=== PATIENT | male | born 1990 | race Caucasian/White ===

== ENCOUNTER 2020-12-12 11:54 | Emergency (ER) | payer OTHER, SELFPAY ==
[2020-12-12 11:56] VITALS: BP 136/103; PULSE 93; RESP 15; TEMP 36.5; O2SAT 96; BMI 34.4
--- NOTE | 2020-12-12 12:46 | EX.ED.DYSGE1 ---
HPI History of Present Illness Chief Complaint: Dizziness Informant: patient Onset/Context/Timing Onset: Yesterday Context: Sudden Onset Current Severity: Moderate Maximum Severity: Moderate Narrative Narrative: Patient presents secondary to dizziness and vomiting. Patient states he was at work yesterday afternoon at 1:30 in the afternoon when he developed sudden onset of spinning sensation. He left work early and has vomited multiple times secondary to the dizziness. He states he has had vertigo in the past but never this severe and never with vomiting. He denies headache. No head trauma. He denies weakness or paresthesias elsewhere. [facility] Medical History (Updated 12/12/20 @ 14:[address] Zara Pehlan MD) Knee pain Migraines Stomach ulcer Home Medications meclizine 25 mg tablet 25 mg PO BID-TID PRN #10 tab 07/11/18 [Rx Last Taken Unknown] omeprazole magnesium 10 mg oral suspension,delayed release 10 mg PO DAILY 07/11/18 [History Last Taken Unknown] promethazine 25 mg tablet 25 mg PO Q6H PRN #10 tab 07/11/18 [Rx Last Taken Unknown] clindamycin HCl 300 mg capsule 300 mg PO TID #21 cap 02/28/20 [Rx Last Taken Unknown] meclizine [Antivert] 50 mg PO BID PRN #14 tab 12/12/20 [Rx Last Taken Unknown] ondansetron 4 mg PO Q8H PRN #10 tab 12/12/20 [Rx Last Taken Unknown] Allergy/AdvReac Type Severity Reaction Status Date / Time cefaclor [From [facility]] Allergy Unknown Verified 12/12/20 11:55 Surgical History History of appendectomy Social History Smoking Status: Never smoker alcohol intake: never ROS ROS ED Constitutional Constitutional ED: Denies chills or fever(s) Eyes Eyes: Denies change in vision ENT ENT ED: Denies sore throat Cardiovascular Cardiovascular: Denies chest pain Respiratory/Chest Respiratory/Chest: Denies cough or dyspnea Gastrointestinal Gastrointestinal: Reports nausea and vomiting; Denies abdominal pain or diarrhea Genitourinary Genitourinary ED: Denies dysuria Musculoskeletal Musculoskeletal: Denies back pain Integumentary Denies rash Neurologic Neurologic: Denies headache(s) or weakness Psychiatric Psychiatric: Denies anxiety or depression Endocrine Endocrinology: Denies polydipsia or polyuria Allergic/Immunologic Allergic/Immunologic ED: Denies urticaria EXAM Physical Exam Const Vital Signs: 12/12/20 11:56 12/12/20 13:09 12/12/20 13:11 Temperature 97.7 F L Temperature Source Temporal Pulse Rate 93 Respiratory Rate 15 14 Respiratory Effort Normal Respiratory Pattern Normal Blood Pressure 136/103 H Blood Pressure Mean 114 Pulse Ox 96 Oxygen Delivery Method Room Air Positive well nourished and well developed General Appearance ED: well developed HEENT Reports normocephalic and head/scalp atraumatic Eyes PERRL and EOMs intact bilaterally Eyes Narrative: Recurrent symptoms of vertigo when he gazes to the left. Neck supple Chest Wall inspection of chest normal and palpation of chest normal Resp normal respiratory effort and clear to auscultation bilaterally Cardio regular rate and regular rhythm GI normal to inspection, nondistended, normoactive bowel sounds Palpation: soft Back/Spine no CVA tenderness Extremity normal to inspection Neuro oriented x3 and no sensory deficits noted Sensorium / Orientation: alert Motor Exam: strength 5/5 throughout Psych mental status grossly normal Skin no rashes or lesions noted MDM MDM MDM Narrative Medical decision making narrative: Patient was given IV fluids, Zofran, Antivert. Labs and head CT are obtained. Patient declined EKG. He was placed on diagnostic cardiac sonographer with no obvious arrhythmias. Lab Data Attestation: I reviewed the patient's lab results. Labs: Laboratory Results - last 24 hr 12/12/20 12/12/20 12:20 12:20 WBC 5.8 RBC 4.92 Hgb 14.9 Hct 43.6 MCV 88.6 MCH 30.3 MCHC 34.2 RDW Std Deviation 39.5 RDW Coeff of Sharan 12.1 Plt Count 244 MPV 11.2 Immature Gran % (Auto) 0.200 Neut % (Auto) 61.7 Lymph % (Auto) 27.2 [place] % (Auto) 8.8 Eos % (Auto) 1.6 Baso % (Auto) 0.5 Absolute Neuts (auto) 3.6 Absolute Lymphs (auto) 1.58 Nucleated RBC % 0 Sodium 140 Potassium 3.7 Chloride 106 Carbon Dioxide 30.0 Anion Gap 4 L BUN 15 Creatinine 1.00 Estim Creat Clear Calc 107.03 Est GFR (MDRD) Af Amer 112 Est GFR (MDRD) Non-Af 93 BUN/Creatinine Ratio 15.0 Glucose 110 H Calcium 8.5 Radiography Diagnostic Testing: Radiology Impression Brain CT 12/12/20 13:07 IMPRESSION: Normal unenhanced CT scan of the brain. Opacification of the left maxillary sinus. Electronically Signed: Quetnin Hampton MD at 13:25 EDT , Service support , Treatment and Re-Evaluation Comments:: On repeat evaluation patient still does complain of some vertigo symptoms. He is, however, requesting to go home stating he feels good enough to do that. He will be given prescriptions for Zofran and Antivert at home. He will be given instructions on Rosaline maneuver. Discharge Plan Triage Chief Complaint: Dizziness ED Provider: Zara Phelan Dx/Rx/DC Orders Clinical Impression: BPPV (benign paroxysmal positional vertigo) Instructions: ED BPV Vertigo Prescriptions: New Antivert 50 mg tablet 50 mg PO BID PRN (Reason: dizziness) Qty: 14 RF: 0 ondansetron 4 mg tablet,disintegrating 4 mg PO Q8H PRN (Reason: nausea and vomiting) Qty: 10 RF: 0 No Action Prilosec 10 mg susp,delayed release for recon 10 mg PO DAILY RF: 0 meclizine 25 mg tablet 25 mg PO BID-TID PRN (Reason: dizziness) Qty: 10 RF: 0 promethazine 25 mg tablet 25 mg PO Q6H PRN (Reason: nausea and vomiting) Qty: 10 RF: 0 clindamycin HCl 300 mg capsule 300 mg PO TID Qty: 21 RF: 0 Primary Care Provider: Care Physician,No Primary Referrals: Care Physician,No Primary [Primary Care Provider] - Activity Restrictions/Additional Instructions: Please follow-up with your new PCP on December 23 as scheduled. Disposition Disposition: Home, Self Care
[2020-12-12 12:57] LABS: Absolute Lymphocyte Count 1.58 X10^3/uL (0.83-4.51); Absolute Neutrophil Count 3.6 X10^3/uL (2.0-7.7); Basophil# 0.03 X10^3/uL; Basophil% 0.5 % (0-1); Eosinophil# 0.09 X10^3/uL; Eosinophils% 1.6 % (0-5); Hematocrit 43.6 % (40-54); Hemoglobin 14.9 g/dL (13.0-16.5); Lymphocyte # 1.58 X10^3/ul (0.83-4.51); Lymphocyte % 27.2 % (19-41); Mean Corp Hgb Conc 34.2 g/dL (32-36); Mean Corpuscular Hgb 30.3 pg (27.0-32.0); Mean Corpuscular Volume 88.6 fL (80-94); Mean Platelet Vol. 11.2 fl (6.2-12.0); Monocyte# 0.51 X10^3/uL; Monocyte% 8.8 % (0-10); NRBC Flagged by Analyzer 0 % (0-5); Neutrophil # 3.58 X10^3/uL (2.7-7.7); Neutrophil % 61.7 % (47-70); Platelet Count 244 K/mm3 (150-450); RBC Distribution Width CV 12.1 % (11.6-14.6); RBC Distribution Width SD 39.5 fl (35.1-43.9); Red Blood Count 4.92 M/mm3 (4.6-6.2); White Blood Count 5.8 K/mm3 (4.4-11.0)
[2020-12-12 13:05] LABS: Anion Gap 4 (5-15); BUN 15 mg/dL (7-18); Calcium,Total 8.5 mg/dL (8.5-10.1); Chloride 106 mmol/L (98-107); EST Glomerular Filtration Rate 93 mL/min (>60); Est Glom Filt Rate - Afr Amer 112 mL/min (>60); Estimated Creatinine Clearance 107.03 ml/min; Glucose 110 mg/dL (74-106); Potassium 3.7 mmol/L (3.5-5.1); Sodium Level 140 mmol/L (136-145)
--- NOTE | 2020-12-12 13:07 | CT_ITS ---
STUDY: CT BRAIN WITHOUT CONTRAST REASON FOR EXAM: Male, 30 years old. Vertigo RADIATION DOSAGE (If Supplied By Facility): CTDIvol = ( 38.43 ) mGy, DLP = ( 741.51 ) mGycm TECHNIQUE: Transaxial CT imaging of the brain was performed without administration of intravenous contrast material. Individualized dose optimization techniques were used for this CT. COMPARISON: No relevant priors. FINDINGS: Normal soft tissue structures. Normal calvarium. Normal size ventricles and extra-axial spaces for the patient''s age. Normal white matter tracts of the cerebral hemispheres. Normal basal ganglia and thalami. Normal brainstem. Normal cerebellum. There is no intracranial hemorrhage. There are no findings of an acute ischemic infarction. There is opacification of the left maxillary sinus. CT/Brain/Head without Contrast IMPRESSION: Normal unenhanced CT scan of the brain. Opacification of the left maxillary sinus. Electronically Signed: Quentin Hampton MD at 13:25 EDT , Service support ,
[2020-12-12 13:11] VITALS: RESP 14
[2020-12-12] MEDS: Meclizine HCl 25 MG Tablet PO (13:26)
[2020-12-12] MEDS: 0.9% Normal Saline 1,000 ML 1000 ML IV (13:27)
[2020-12-12] MEDS: Ondansetron 4 MG/2 ML Vial IV (13:27)
--- NOTE | 2020-12-12 13:29 | CM.ED ---
KAREN Note Referral Source: Case Find Referral Reason: No primary Care physican KAREN reviewed patient's chart and noted patient has no Primary Care Physican (PCP). KAREN met with patient. He reports he has an appt with a PCP next month. KAREN provided him with a list of [facility] doctors if he needed any more additional information. No other concerns or issues voiced. Plan: Provide with list of PCP Maria Teresa NAYAK
== END 2020-12-12 15:07 | disposition home or self-care (01) ==
PROVIDERS: Emergency Provider Emergency Medicine
DX: H81.10 Benign paroxysmal vertigo, unspecified ear (principal)
CPT/HCPCS: 70450; 80048; 85025; 96374; 99283; J7030; A4216; J2405

== ENCOUNTER → 2021-04-22 08:02 | Outpatient (CLI) | payer OTHER, SELFPAY ==
--- NOTE | 2021-04-22 08:03 | MRI_ITS ---
STUDY: MRI LEFT ANKLE WITHOUT CONTRAST REASON FOR EXAM: Medial posterior left ankle pain after left ankle injury 5 weeks ago. TECHNIQUE: Standardized fat and water weighted pulse sequences were obtained in all 3 orthogonal planes. COMPARISON: Radiographs 04/04/2021. FINDINGS: Normal subcutis adipose space. There is a ganglion cyst posterior to the posterior talofibular ligament (T2 axial images 16, 17) measuring 0.5 x 1.4 cm (AP x transverse). Normal posterior tibialis tendon. Normal flexor digitorum longus tendon. Normal flexor hallucis longus tendon. Normal peroneus longus and brevis tendons. Normal tibialis anterior tendon. Normal extensor hallucis longus tendon. Normal extensor digitorum longus tendons. Normal Achilles tendon and teno-osseous insertion. Normal plantar fascia. Normal plantar calcaneal tubercles. Normal intrinsic muscles of the rearfoot. Normal distal tibiofibular syndesmotic ligamentous complex. There is a mild sprain of the anterior talofibular ligament (T2 axial image 17). Normal calcaneofibular and posterior talofibular ligaments. Normal subtalar ligaments and sinus tarsi. There is a mild sprain of the deltoid ligament (T2 coronal image 14). Normal plantar calcaneonavicular (spring) ligament. Normal tibiotalar articulation. Normal talar dome. There is a bone island in the anterior aspect of the talar dome (T1 sagittal image 12). Normal subtalar articulations. There is a small os trigonum. There is mild bone edema in the superior aspect of the posterior tuberosity of the calcaneus (inversion recovery sagittal images 12-14), a stress phenomenon. Normal talonavicular articulation. Normal calcaneocuboid articulation. Normal navicular-cuneiform articulations. MRI/Lower Ext Joint Only (Routine) IMPRESSION: Mild sprain of the anterior talofibular ligament. Mild sprain of the deltoid ligament. Mild bone edema in the superior aspect of the posterior tuberosity of the calcaneus, a stress phenomenon. Ganglion cyst posterior to the posterior talofibular ligament. Electronically Signed: Venkat Reese MD at 9:41 EST Tel , Service support ,
== END ==
PROVIDERS: Referring Provider Physician Assistant Surgical; Visit Provider Physician Assistant Surgical
DX: S96.912A Strain of unspecified muscle and tendon at ankle and foot level, left foot, initial encounter (principal)
CPT/HCPCS: 73721

== ENCOUNTER 2021-06-26 15:30 | Outpatient (RCR) | payer OTHER, SELFPAY ==
--- NOTE | 2021-05-28 17:53 | HP.PTEVAL ---
Patient's Visit Information LANNY MARTINEZ is a 30 year old M referred to Physical Therapy by ROSALIO Tripp with a diagnosis of LEFT ANKLE SPRAIN. Date of Evaluation: 05/28/21 Physical Therapist: Lg Pak, PT, Cert MDT, OCS - Visit Plan Frequency: 2-3x /Week Duration: 4-6 Weeks Plan: PT INTERVETIONS ROM ANKLE ,FLEXABLITY G-S,STRENGTHENING ANKLE STABLIZERS ,PROPRIOCEPTION AND FUNCTIONA STRENGTHENING MODALTIES NEEDED - Subjective This 30 y/o male presents to physical therapy with left ankle sprain. Patient injured left fell of ladder from 6 ft ladder 2nd steps from top on 03/30/21 . [facility] X-ray did showed possible a hairline fracture placed CAM boot with NWB with crutches. Also had a lot of edema. Return to 3weeks x-rays - . Place air cast with WBT no crutches. Then had MRI showed mild sprain ATFL, deltoid ligament and bone bruise Then [facility] reviewed MRI recommended PT. RTW next week on light duty . Patient also is on light Duty at work. Patient pain located anterior posterior ankle with push off gait. Patient conts to get edema with prolonged standing at work. Denies paresthesia/tingling. Sleep okay at night. Aggravating factors inactivity ,on feet with walking affecting job demands. SOCAIL: . VOACTION: [employer] - Pain Left Ankle Pain Intensity (Out of 10): 7 Pain Intensity Range: 10 - Objective POSTURE: mild pes planus. EDEMA: trimalleor joint line 60.2 cm. GAIT: reciprocal pattern. PALAPATION: anterior talofibular ligament, deltoid ,calcaneal ligament. AROM: dorsiflexion 10 from 0 ,plantarflexion 65 degrees ,eversion 10 degrees ,inversion 35 degrees. MMT: anterior tibals 4-/5,posterior tibials 4-/5,peroneous 4-/5 G-S 4-/5. PROPRIOCEPTION: fair with SLS 30sec. SPECIAL TEST: ANTERIOR DRAWER 1+,INVERSION + ,TALAR TILT + - Balance/Special Test Scores Lower Extremity Functional Score: 36 - Goals Goal 1:: I with HEP for ankle Goal Time Frame: 4-6 Weeks Goal 2:: Patient to improve ROM ankle symmetrically left compared to right to improve function and gait Goal Time Frame: 4-6 Weeks Goal 3:: Patient to increase strength left ankle stabilizers by 5/5 to improve gait Goal Time Frame: 4-6 Weeks Goal 4:: Patient to improve proprioception to WNL to improve gait and job demands walking outside. Goal Time Frame: 6-8 Weeks Goal 5:: Patient improve LFES score by 10 points or > to improve function and job demands. Goal Time Frame: 4-6 Weeks - Rehabilitation Potential Physical Therapy Diagnosis: This patient twisted left ankle at work caused pain ,swelling ,difficulty to walk, initially had to be NWB with crutches causes impairments to RTW fully duty thus benefit from skilled PT Rehabilitation Potential: Good - Anticipated Interventions Patient/Client Instruction: Educate patient on: Condition, Plan of Care For the Purpose of:: To decrease pain, To increase ROM, To improve muscle performance and motor function, To improve ability to perform ADL's, To improve performance and independence with ADL's, To improve ability of physical actions for home/community/work/leisure, To improve health of tissue, To decrease soft tissue restriction, To increase flexibility/ROM, To improve balance, To improve safety, To prevent re-injury Therapeutic Exercise to Include: Strength training, Balance training, Flexibilty training, Active ROM Comment: ANKLE For the Purpose of:: To decrease pain, To increase ROM, To increase oxygenation perfusion, To improve ability to perform ADL's, To increase tolerance to activity/condition/position, To improve ability of physical actions for home/community/work/leisure, To improve health of tissue, To decrease soft tissue restriction, To increase flexibility/ROM, To improve balance, To prevent re-injury TENS: Yes IF ES: Yes Cryotherapy (ice pack, ice massage): Yes Thermo therapy (hot pack): Yes Ultrasound (thermal/non thermal): Yes For the Purpose of:: To decrease pain, To improve health of tissue, To decrease soft tissue restriction Thank you for the opportunity to evaluate your patient. For Medicare and Medicare HMO plans, please review the plan of care and approve it. It will need to be FAXED BACK to us at [phone] for Medicare purposes. For Medicare only, by signing this I certify the plan of care. Please let me know if there are questions or concerns regarding this plan of care. Physician Signature: Date:
--- NOTE | 2021-11-12 13:56 | HP.PT.NRP ---
LANNY MARTINEZ was seen in my office for initial evaluation on 05/28/21. The following Plan of Care was established for this patient: Initial Frequency: 2-3x /Week Initial Duration: 4-6 Weeks Patient/Client Instruction: Educate patient on: Condition, Plan of Care For the Purpose of:: To decrease pain, To increase ROM, To improve muscle performance and motor function, To improve ability to perform ADL's, To improve performance and independence with ADL's, To improve ability of physical actions for home/community/work/leisure, To improve health of tissue, To decrease soft tissue restriction, To increase flexibility/ROM, To improve balance, To improve safety, To prevent re-injury Therapeutic Exercise to Include: Strength training, Balance training, Flexibilty training, Active ROM For the Purpose of:: To decrease pain, To increase ROM, To increase oxygenation perfusion, To improve ability to perform ADL's, To increase tolerance to activity/condition/position, To improve ability of physical actions for home/community/work/leisure, To improve health of tissue, To decrease soft tissue restriction, To increase flexibility/ROM, To improve balance, To prevent re-injury TENS: Yes IF ES: Yes Cryotherapy (ice pack, ice massage): Yes Thermo therapy (hot pack): Yes Ultrasound (thermal/non thermal): Yes For the Purpose of:: To decrease pain, To improve health of tissue, To decrease soft tissue restriction This patient was last seen in our office . Pertinent comments regarding their Physical therapy will appear below: Patient seen for PT for left ankle sprain for strengthening and proprioception thus is d/c to HEP and RTW At this point I will be discontinuing this patient from physical therapy. I would be happy to see this patient again in the future if found appropriate by the physician. Thank you! Lg Pak, PT, Cert MDT, OCS Balance/Gait/Functional tests - Balance/Special Test Scores Lower Extremity Functional Score: 75
== END 2021-06-26 19:00 | disposition home or self-care (01) ==
LOC: PT 15:30
DX: S96.912D Strain of unspecified muscle and tendon at ankle and foot level, left foot, subsequent encounter (principal); X58.XXXD Exposure to other specified factors, subsequent encounter
CPT/HCPCS: 97110; 97161